=== PATIENT | female | born 1940 | race Caucasian/White ===

== ENCOUNTER 2022-08-24 16:24 | Inpatient (IN) | payer MEDICARE ==
[~2022-08-24] VITALS: Ht 154.9 cm; Wt 67.5 kg
--- NOTE | 2022-08-24 18:36 | NUR ---
ADMIT/ END OF SHIFT PT ADMITTED TO PCU VIA EMS TRANSPORT FROM [facility]. PT ADMITTED WITH HEART BLOCK ISSUES AND POSSIBLE PACER PLACEMENT. ON ADMISSION, PT IS NSR RATE IN THE 60s. NO COMPLAINTS CP OR SOB. PT WAS ORIENTED TO ROOM AND CALL LIGHT SYSTEM. ADMITTING PROVIDER VISITED AND TO BE PUTTING IN ORDERS. REGULAR DIET UNTIL MIDINIGHT THEN NPO. PT AWARE. PT STAND BY ASSIST TO COMMODE TO VOID. SOME COMPLAINTS OF DIZZINESS BUT VITALS STABLE WITH MOVEMENT. PT CURRENTLY ON THE PHONE WITH FAMILY. CALL LIGHT IS WITHIN REACH, PT IS ABLE TO MAKE NEEDS KNOWN.
[2022-08-25 04:10] LABS: Hematocrit 33.3 % (33.0-51.0); Hemoglobin 11.6 g/dL (11.5-16.0); Mean Corpuscular HGB 31.1 pg (26.0-34.0); Mean Corpuscular HGB Conc 34.8 g/dL (31.5-36.5); Mean Corpuscular Volume 89 fL (80-100); Mean Platelet Volume 9.6 fL (9.1-12.4); Platelet Count 204 K/mm3 (150-400); RDW Coefficient Variation 12.4 % (11.7-14.2); RDW Standard Deviation 40.3 fL (35.1-46.3); Red Blood Cell Count 3.73 M/mm3 (3.80-5.20); White Blood Cell Count 5.62 K/mm3 (4.00-11.30)
[2022-08-25 04:41] LABS: Albumin, Blood 3.5 g/dL (3.4-5.0); Anion Gap 2 mmol/L (6-16); Blood Urea Nitrogen 19 mg/dL (8-24); Bun/Creatinine Ratio 19.7 (12.0-20.0); CO2, Blood 32 mmol/L (21-32); Calcium, Blood 8.8 mg/dL (8.5-10.1); Chloride, Blood 102 mmol/L (98-108); Creatinine, Blood 0.97 mg/dL (0.40-1.00); Glomerular Filtration Rate 58 (60-); Glucose, Blood 104 mg/dL (70-99); Magnesium, Blood 2.1 mg/dL (1.6-2.4); Phosphorus, Blood 3.6 mg/dL (2.5-4.9); Potassium, Blood 3.7 mmol/L (3.5-5.5); Sodium, Blood 136 mmol/L (136-145)
--- NOTE | 2022-08-25 05:31 | NUR ---
SHIFT SUMMARY ASSUMED CARE OF PT AT 1900. PT IS A/OX4. HEART SOUNDS REGULAR. NO CARDIAC EVENTS. LUNG SOUNDS CLEAR. PT WAS SBA TO BATHROOM. SLEPT T/O THE NIGHT.
[2022-08-25] MEDS ORDERED: ALBU90OI INH (07:33)
[2022-08-25] MEDS ORDERED: Aspir 8181 MG PO (07:34)
[2022-08-25] MEDS ORDERED: ASCO500 PO (07:34)
[2022-08-25] MEDS ORDERED: ATOR10 PO (07:35)
[2022-08-25] MEDS ORDERED: CELE200 PO (07:35)
[2022-08-25] MEDS ORDERED: THERA-D2000 UNIT PO (07:36)
[2022-08-25] MEDS ORDERED: B-12500 MC2 PO (07:37)
[2022-08-25] MEDS ORDERED: Celexa20 MG PO (07:37)
[2022-08-25] MEDS ORDERED: HYDCHL25 PO (07:38)
[2022-08-25] MEDS ORDERED: IPRATROPIUM BRO30 ML (07:40)
[2022-08-25] MEDS ORDERED: LEVSOD25 PO (07:41)
[2022-08-25] MEDS ORDERED: LIDO700A20 TOP (07:41)
[2022-08-25] MEDS ORDERED: Robaxin750 MG PO ×2 (07:43)
[2022-08-25] MEDS ORDERED: METO50ER PO (07:44)
[2022-08-25] MEDS ORDERED: Hair, Skin & N1 EACH PO (07:45)
[2022-08-25] MEDS ORDERED: MONT10T PO (07:45)
[2022-08-25] MEDS ORDERED: NYAMYC15 G1 TOP (07:47)
[2022-08-25] MEDS ORDERED: POTA10T PO (07:47)
[2022-08-25] MEDS ORDERED: PROMETHAZINE V473 M1 PO (07:54)
[2022-08-25] MEDS ORDERED: TOCO1000 PO (07:55)
[2022-08-25] MEDS ORDERED: ZOLM2.5 PO (07:57)
--- NOTE | 2022-08-25 18:47 | NUR ---
END OF SHIFT NOTE. PT WENT FOR PACER PLACEMENT. LEFT CHEST DUAL PACER SITE WITH NO REDNESS AND MINIMAL SWELLING. PT HAS HAD ICE TO AREA THIS AFTERNOON. VITALS HAVE BEEN STABLE POST PROCEDURE. SLEEPING SOME. PT HAS BEEN EDUCATED ON LIFTING RESTRICTIONS. PT UPDATED DAUGHTER. PT DOES HAVE PLANS FOR TRANSPORTATION AT DISCHARGE. PT IS ABLE TO MAKE NEEDS KNOWN, CALL LIGHT IS WITHIN REACH.
[2022-08-26 04:49] LABS: CHOL/HDL RATIO 2.7; Cholesterol 149 mg/dL (50-200); HDL Cholesterol 55 mg/dL (>39); LDL/HDL RATIO 1.4; Low Density Lipoprotein Chol 77 mg/dL (0-110); Triglycerides 86 mg/dL (30-160); Very Low Density Lipoprot Chol 17 mg/dL (6-32)
--- NOTE | 2022-08-26 05:35 | NUR ---
SHIFT SUMMARY ASSUMED CARE OF PT AT 1900. PT IS A/OX4. HEART SOUNDS REGULAR. NO PACED BEATS. LUNG SOUNDS CLEAR. PT C/O SORNESS AT PACER SITE. MEDICATED PER EMAR. PT STATES ONLY WHEN SHE TRIES TO MOVE. PT ABLE TO AMBULATE TO BATHROOM WITH MINIMAL ASSIST.
--- NOTE | 2022-08-26 14:54 | NUR ---
DISCHARGE HOME PT A&O X4. VSS. SPO2 > 92% ON RA. MONITOR SHOWING SR, HR 60s. LCW PACER SITE W/ SLIGHT REDNESS & SWELLING. L ARM IN SLING & ICE PACK IN PLACE TO SITE. PT REPORTING SLIGHT TENDERNESS TO SITE W/ MOVEMENT, OTHERWISE DENIES PAIN/DISCOMFORT. PACER INTERROGATION, EKG & CXR COMPLETED THIS SHIFT. DISCHARGE INSTRUCTIONS REVIEWED W/ PT & PRINTED INSTRUCTIONS SENT HOME W/ PT. PIVs REMOVED. PT TAKEN OUT BY WHEELCHAIR W/ BELONGINGS @ APPROX [id number].
== END 2022-08-26 15:00 | disposition home or self-care (01) | DRG 244 ==
LOC: PCU 16:24
PROVIDERS: Internal Medicine; Internal Medicine Cardiovascular Disease; ADMIT Hospitalist
PROC: 0JH606Z Insertion of Pacemaker, Dual Chamber into Chest Subcutaneous Tissue and Fascia, Open Approach (ICD-10-PCS; principal; 2022-08-25)
PROC: 02H63JZ Insertion of Pacemaker Lead into Right Atrium, Percutaneous Approach (ICD-10-PCS; 2022-08-25)
PROC: 02HK3JZ Insertion of Pacemaker Lead into Right Ventricle, Percutaneous Approach (ICD-10-PCS; 2022-08-25)
PROC: B517ZZZ Fluoroscopy of Left Subclavian Vein (ICD-10-PCS; 2022-08-25)
PROC: B51NZZZ Fluoroscopy of Left Upper Extremity Veins (ICD-10-PCS; 2022-08-25)
DX: I44.2 Atrioventricular block, complete (principal); I10 Essential (primary) hypertension; K21.9 Gastro-esophageal reflux disease without esophagitis; E03.9 Hypothyroidism, unspecified; E78.5 Hyperlipidemia, unspecified; I44.7 Left bundle-branch block, unspecified; M54.50 Low back pain, unspecified; G89.29 Other chronic pain; Z90.49 Acquired absence of other specified parts of digestive tract; Z90.710 Acquired absence of both cervix and uterus; Z98.890 Other specified postprocedural states; Z88.0 Allergy status to penicillin; Z88.5 Allergy status to narcotic agent; Z88.8 Allergy status to other drugs, medicaments and biological substances; Z79.51 Long term (current) use of inhaled steroids; Z79.899 Other long term (current) drug therapy; Z79.02 Long term (current) use of antithrombotics/antiplatelets; Z79.82 Long term (current) use of aspirin; Z98.49 Cataract extraction status, unspecified eye; Z87.891 Personal history of nicotine dependence
CPT/HCPCS: 33208; 36415; 71046; 80061; 80069; 83735; 84443; 85027; 93005; 93010; 93306; 94760; 99152; 99153; A9270; C1785; C1894; C1898; J0360; J1644; J2250; J3010; J3370; J7030; J7040; Q9967